=== PATIENT | male | born 1975 ===

== ENCOUNTER 2017-09-22 10:41 | Emergency (ER) | payer OTHER ==
[2017-09-22] MEDS: PROPARACAINE HCL 0.5% OPHT SOLN 15 ML BTL RIGHT EYE (11:12)
[2017-09-22] MEDS: TETANUS/DIPHTHERIA TOXOID ADULT 0.5 ML VIAL IM (11:34)
== END 2017-09-22 11:42 | disposition home or self-care (01) ==
LOC: NEPK 10:41
DX: S05.51XA Penetrating wound with foreign body of right eyeball, initial encounter (principal); S05.01XA Injury of conjunctiva and corneal abrasion without foreign body, right eye, initial encounter; W20.8XXA Other cause of strike by thrown, projected or falling object, initial encounter; Y92.810 Car as the place of occurrence of the external cause; Z23 Encounter for immunization; Z72.0 Tobacco use
CPT/HCPCS: 65220; 90471; 90714; 99282-25